=== PATIENT | female | born 1990 | race Caucasian/White ===

== ENCOUNTER 2017-02-15 18:34 | Emergency (ER) | payer OTHER ==
[2017-02-15 18:42] VITALS: BP 121/68; PULSE 78; TEMP 98; BMI 24.7
[2017-02-15] MEDS ORDERED: FLUORESCEIN NA 1 EA STRIP ONE (19:22)
--- NOTE | 2017-02-15 19:28 | PDOC ---
History of Present Illness - General Chief Complaint: Rash Stated Complaint: ITCHING Time Seen by Provider: 02/15/17 19:18 History Source: Patient Exam Limitations: No Limitations - History of Present Illness Initial Comments: 02/15/17 19:28 Patient is a 26 year old female, no significant medical history currently no medication reports that approximately 12 PM today started having itching to right eye, was scratching eye then developed redness in the eye, yellow drainage this a.m., now with itching sensation clear discharge to right ear. Patient denies any fever, no trauma, denies any headache. Past Medical History: Denies. Allergies: No known allergies Medications: None Family History: Non-contributory Social History: Denies smoking, alcohol use, or IVDU Review of Systems GENERAL/CONSTITUTIONAL: No fever or chills. No weakness. No weight change. HEAD, EYES, EARS, NOSE AND THROAT: No change in vision. Right ear itching sensation clear discharge. No sore throat. Right eye is pruritic and erythematous CARDIOVASCULAR: No chest pain or shortness of breath. RESPIRATORY: No cough, wheezing, or hemoptysis. GASTROINTESTINAL: No nausea, vomiting, diarrhea or constipation. No rectal bleeding. GENITOURINARY: No dysuria, frequency, or change in urination. MUSCULOSKELETAL: No joint or muscle swelling or pain. No neck or back pain. SKIN : No rash or easy bruising. NEUROLOGIC: No headache, vertigo, loss of consciousness, or loss of sensation. Physical Exam: GENERAL: The patient is awake, alert, and fully oriented, in no acute distress. EYES: Pupils equal, round and reactive to light, extraocular movements intact, sclera anicteric, conjunctiva on right is erythematous, yellow drainage. Fluorescein stain to right eye, no corneal abrasion is noted. ENT: Right TM is pruritic with clear discharge, erythematous edematous canal consistent with otitis externa nares patent, oropharynx clear without exudates. Moist mucous membranes. No uvula deviation NECK: Normal range of motion, supple without lymphadenopathy, JVD, or masses. LUNGS: Breath sounds equal, clear to auscultation bilaterally. No wheezes, and no crackles. HEART: Regular rate and rhythm, normal S1 and S2 without murmur, rub or gallop. ABDOMEN: Soft, nontender, normoactive bowel sounds. No guarding, no rebound. No masses. No bruising or abrasions MUSCULOSKELETAL: Normal range of motion, no edema. No clubbing or cyanosis. No cords, erythema, or tenderness. No CVA Tenderness with fist. NEUROLOGICAL: Cranial nerves II through XII grossly intact. Normal speech, normal gait. SKIN: Warm, Dry, normal turgor, no rashes or lesions noted. 02/15/17 19:33 Past History - Past Medical History Allergies/Adverse Reactions: Allergies Allergy/AdvReac Type Severity Reaction Status Date / Time No Known Allergies Allergy Verified 02/15/17 18:42 Home Medications: Ambulatory Orders Ciprofloxacin HCl/Dexameth [Ciprodex Otic Suspension] 4 drop AD BID #1 bottle Polymyxin B Sulfate/Tmp [Polytrim Opthalmic Solution -] 1 drop OD Q3H #1 drops 02/15/17 Other medical history: denies - Psycho/Social/Smoking Cessation Hx Anxiety: No Suicidal Ideation: No Smoking Status: No Smoking History: Never smoked Have you smoked in the past 12 months: No Number of Cigarettes Smoked Daily: 0 Information on smoking cessation initiated: No Hx Alcohol Use: No Drug/Substance Use Hx: No Substance Use Type: None *Physical Exam - Vital Signs Last Vital Signs Temp Pulse Resp BP Pulse Ox 98 F 78 19 121/68 99 02/15/17 18:39 02/15/17 18:39 02/15/17 18:39 02/15/17 18:39 02/15/17 18:39 Medical Decision Making - Medical Decision Making 02/15/17 19:33 A/P: Patient with right eye conjunctivitis, fluorescein stained with no corneal abrasion noted. We will discharge patient on Cipro otic and Polytrim. If any increased redness , swelling or any other concerns patient to return back to ER I discussed the physical exam findings, ancillary test results and final diagnoses with the patient. I answered all of the patient's questions. The patient was satisfied with the care received and felt comfortable with the discharge plan and treatment plan. The patient will call to arrange follow-up and will return to the Emergency Department with any new, persistent or worsening symptoms. *DC/Admit/Observation/Transfer Diagnosis at time of Disposition: Conjunctivitis Qualifiers: Conjunctivitis type: acute Acute conjunctivitis type: bacterial Laterality: right Qualified Code(s): H10.31 - Unspecified acute conjunctivitis, right eye Otitis externa Qualifiers: Otitis externa type: swimmer's ear Chronicity: acute Laterality: right Qualified Code(s): H60.331 - Swimmer's ear, right ear - Discharge Dispostion Disposition: HOME Condition at time of disposition: Good Admit: No - Prescriptions Prescriptions: Ciprofloxacin HCl/Dexameth [Ciprodex Otic Suspension] 4 drop AD BID #1 bottle Polymyxin B Sulfate/Tmp [Polytrim Opthalmic Solution -] 1 drop OD Q3H #1 drops - Referrals Referrals: STAFF,NOT ON [Primary Care Provider] - - Patient Instructions Additional Instructions: Refrain from rubbing or scratching eye, did not put any foreign body in ear. If symptoms persist, increased redness and swelling to face or any other concerns return to ER - Post Discharge Activity Work/School Note: Back to Work
== END 2017-02-15 19:48 | disposition home or self-care (01) ==
LOC: JERFT 18:34
DX: H60.331 Swimmer's ear, right ear (principal); H10.31 Unspecified acute conjunctivitis, right eye
CPT/HCPCS: 99281-25

== ENCOUNTER 2017-02-21 18:40 | Emergency (ER) | payer OTHER ==
[2017-02-21 18:48] VITALS: BP 125/78; PULSE 96; TEMP 99.3; BMI 28.3
--- NOTE | 2017-02-21 20:53 | PDOC ---
History of Present Illness - General Chief Complaint: Pain Stated Complaint: ABDOMINAL PAIN Time Seen by Provider: 02/21/17 20:53 History Source: Patient - History of Present Illness Initial Comments: 02/21/17 21:44 26 year old female with midabdominal pain/ epigastric area c/o NVD x 1 day. denies sick contacts. reports "slight fever" yesterday. denies fever today. no urinary symptoms. no pmhx no pshx 02/21/17 21:46 Past History - Past Medical History Allergies/Adverse Reactions: Allergies Allergy/AdvReac Type Severity Reaction Status Date / Time No Known Allergies Allergy Verified 02/21/17 18:46 Home Medications: Ambulatory Orders Ciprofloxacin HCl/Dexameth [Ciprodex Otic Suspension] 4 drop AD BID #1 bottle Polymyxin B Sulfate/Tmp [Polytrim Opthalmic Solution -] 1 drop OD Q3H #1 drops 02/15/17 Famotidine [Pepcid] 40 mg PO DAILY #14 tablet 02/21/17 Other medical history: none - Suicide/Smoking/Psychosocial Hx Smoking Status: No Smoking History: Never smoked Have you smoked in the past 12 months: No Number of Cigarettes Smoked Daily: 0 Hx Alcohol Use: No Drug/Substance Use Hx: No Substance Use Type: None Review of Systems - Review of Systems Able to Perform ROS?: Yes Is the patient limited Thai proficient: No Constitutional: Yes: Chills, Fever ABD/GI: Yes: Diarrhea, Nausea, Vomiting, Abdominal cramping : No: Symptoms Reported, See HPI, Burning, Dysuria, Discharge, Frequency, Flank Pain, Hematuria, Incontinence, Pain, Urgency, Testicular Mass, Testicular Swelling, Lesions, Testicular Pain, Other *Physical Exam - Vital Signs Last Vital Signs Temp Pulse Resp BP Pulse Ox 99.3 F 96 H 18 125/78 100 02/21/17 18:46 02/21/17 18:46 02/21/17 18:46 02/21/17 18:46 02/21/17 18:46 - Physical Exam General Appearance: Yes: Appropriately Dressed Respiratory/Chest: positive: Lungs Clear, Normal Breath Sounds Cardiovascular: positive: Regular Rhythm, Regular Rate Gastrointestinal/Abdominal: positive: Normal Bowel Sounds, Tender (upper mid abdomen/ epigastric area), Soft Musculoskeletal: positive: Normal Inspection. negative: CVA Tenderness Extremity: positive: Normal Capillary Refill, Normal Inspection, Normal Range of Motion Integumentary: positive: Normal Color, Dry, Warm Neurologic: positive: Fully Oriented, Alert, Normal Mood/Affect ED Treatment Course - LABORATORY CBC & Chemistry Diagram: 02/21/17 21:30 02/21/17 21:30 Progress Note - Progress Note Progress Note: A: abdominal pain P: IVF pepcid zofran CBC CMP Lipase UA Urine Medical Decision Making - Medical Decision Making 02/21/17 23:50 patient reports feeling better. tolerating PO liquids. will d/c home. *DC/Admit/Observation/Transfer Diagnosis at time of Disposition: Viral gastroenteritis Abdominal pain Qualifiers: Abdominal location: upper abdomen, unspecified Qualified Code(s): R10.10 - Upper abdominal pain, unspecified - Discharge Dispostion Disposition: HOME - Prescriptions Prescriptions: Famotidine [Pepcid] 40 mg PO DAILY #14 tablet - Patient Instructions Printed Discharge Instructions: DI for Viral Gastroenteritis -- Adult Additional Instructions: drink plenty of fluids. take pepcid as prescribed. follow up with your doctor as soon as possible. return to the ER if symptoms worsen. - Post Discharge Activity Work/School Note: Back to Work
[2017-02-21 21:23] LABS: URINE APPEARANCE SLCLOUDY; URINE BILIRUBIN NEGATIVE (NEGATIVE); URINE BLOOD NEGATIVE (NEGATIVE); URINE COLOR LTYELLOW; URINE GLUCOSE (UA) NEGATIVE (NEGATIVE); URINE KETONE NEGATIVE (NEGATIVE); URINE NITRITE NEGATIVE (NEGATIVE); URINE PROTEIN NEGATIVE (NEGATIVE); URINE UROBILINOGEN NEGATIVE mg/dL (0.2-1.0)
[2017-02-21 21:24] LABS: URINE LEUK ESTERASE 1+ (NEGATIVE)
[2017-02-21 21:26] LABS: URINE BACTERIA RARE /hpf (NONE SEEN); URINE MUCUS RARE; URINE RBC 1 /hpf (0-3); URINE WBC 2 /hpf (3-5)
[2017-02-21] MEDS ORDERED: SODIUM CHLORIDE 1,000 ML IV STA (21:27)
[2017-02-21] MEDS ORDERED: FAMOTIDINE 20 MG/50 ML IVPB 50 ML IVPB ONE ×2 (21:27→21:44)
[2017-02-21] MEDS ORDERED: ONDANSETRON 4 MG/2 ML VIAL IVPB ONE (21:27)
[2017-02-21] MEDS ORDERED: ONDANSETRON 4 MG/2 ML VIAL ONE (21:43)
[2017-02-21 21:44] LABS: BASOPHIL 0.2 % (0-2.0); EOSINOPHIL 0.5 % (0-4.5); MCH 27.9 pg (25.7-33.7); MCHC 34.4 g/dl (32.0-36.0); MEAN PLT VOLUME 8.6 fl (7.5-11.1); NEUTROPHILS 73.7 % (42.8-82.8); PLATELET COUNT 239 K/MM3 (134-434); RDW 15.6 % (11.6-15.6); WHITE BLOOD COUNT 7.4 K/mm3 (4.0-10.0)
[2017-02-21 22:12] LABS: ALBUMIN 3.7 g/dl (3.4-5.0); ALK PHOS 60 U/L (45-117); ANION GAP 4 (8-16); BILIRUBIN,TOTAL 0.6 mg/dL (0.2-1.0); CALCIUM 8.9 mg/dL (8.5-10.1); CO2 27 mmol/L (21-32); CREATININE 0.6 mg/dL (0.55-1.02); GLUCOSE,RANDOM 93 mg/dL (74-106); SGPT/ALT 23 U/L (12-78); TOT PROT 7.9 g/dl (6.4-8.2)
[2017-02-21 22:15] LABS: SGOT/AST 20 U/L (15-37)
[2017-02-21] MEDS ORDERED: DICYCLOMINE HCL 20 MG TABLET PO ONE (23:09)
[2017-02-21] MEDS ORDERED: DICYCLOMINE HCL 10 MG CAPSULE ONE (23:12)
--- NOTE | 2017-02-22 21:20 | EKG ---
Test Reason : Blood Pressure : / mmHG Vent. Rate : 086 BPM Atrial Rate : 086 BPM P-R Int : 136 ms QRS Dur : 072 ms QT Int : 358 ms P-R-T Axes : 042 056 040 degrees QTc Int : 428 ms NORMAL SINUS RHYTHM NORMAL ECG WHEN COMPARED WITH ECG OF 08-OCT-2015 19:41, NO SIGNIFICANT CHANGE WAS FOUND NO CLINICAL INFORMATION IS AVAILABLE REPEAT EKG IF CLINICALLY INDICATED Confirmed by KIA MICHELLE MD ([id number]) on 02/22/2017 9:19:49 PM Referred By: Confirmed By:KIA MICHELLE MD
== END 2017-02-22 00:25 | disposition home or self-care (01) ==
LOC: JER 18:40
PROC: 3E033GC Introduction of Other Therapeutic Substance into Peripheral Vein, Percutaneous Approach (ICD-10-PCS; principal; 2017-02-21)
PROC: 3E033GC Introduction of Other Therapeutic Substance into Peripheral Vein, Percutaneous Approach (ICD-10-PCS; 2017-02-21)
DX: A08.4 Viral intestinal infection, unspecified (principal); B97.89 Other viral agents as the cause of diseases classified elsewhere
CPT/HCPCS: 36415; 76705-TC; 80053; 81003; 81015; 83690; 84703; 85025; 93005; 93010; 96365; 96375; 99282-25

== ENCOUNTER 2018-03-31 18:03 | Emergency (ER) | payer OTHER ==
[2018-03-31 18:12] VITALS: BP 130/70; PULSE 105; TEMP 99.8; BMI 28.7
[2018-03-31 18:24] LABS: URINE APPEARANCE CLOUDY; URINE BILIRUBIN NEGATIVE (<2.0 mg/dL); URINE COLOR LTYELLOW; URINE GLUCOSE (UA) NEGATIVE (NEGATIVE); URINE KETONE NEGATIVE (NEGATIVE); URINE LEUK ESTERASE 3+ (NEGATIVE); URINE NITRITE NEGATIVE (NEGATIVE); URINE PROTEIN 2+ (NEGATIVE); URINE UROBILINOGEN 4.0 E.U/dl mg/dL (0.2-1.0)
--- NOTE | 2018-03-31 18:49 | PDOC ---
History of Present Illness - General Chief Complaint: Pain, Acute Stated Complaint: ABDOMINAL PAIN Time Seen by Provider: 03/31/18 18:45 - History of Present Illness Initial Comments: 27yo F with no significant PMH presenting with suprapubic tenderness x 5 days. Patient reports urinary frequency up to about five times an hour. She has also had discomfort on urination that she describes as orgasmy. Denies hematuria. Patient also reports back discomfort that she describes as wobbly. She had a UTI more than five years ago. She says that her current presentation differs from that episode. She had a fever today of 101 and also felt nauseous. Denies chills, chest pain, or shortness of breath. Past History - Past Medical History Allergies/Adverse Reactions: Allergies Allergy/AdvReac Type Severity Reaction Status Date / Time No Known Allergies Allergy Verified 03/31/18 18:09 Home Medications: Ambulatory Orders Cephalexin [Keflex] 500 mg PO BID #14 capsule 03/31/18 COPD: No - Suicide/Smoking/Psychosocial Hx Smoking Status: No Smoking History: Never smoked Have you smoked in the past 12 months: No Number of Cigarettes Smoked Daily: 0 Hx Alcohol Use: No Drug/Substance Use Hx: No Substance Use Type: None Review of Systems - Review of Systems Comments:: Constitutional: +fever, no chills HEENT: no throat pain, no dysphagia Cardiovascular: no chest pain, no palpitations Respiratory: no cough, no shortness of breath Gastrointestinal: +abdominal pain, +nausea, no vomiting, no diarrhea, no constipation Genitourinary: +dysuria, +frequency Musculoskeletal: no myalgia, no arthralgia Skin: no rash, no itching Neurologic: no headache, no dizziness *Physical Exam - Vital Signs Last Vital Signs Temp Pulse Resp BP Pulse Ox 99.8 F H 105 H 16 130/70 99 03/31/18 18:10 03/31/18 18:10 03/31/18 18:10 03/31/18 18:10 03/31/18 18:10 - Physical Exam Comments: General: Awake, alert, and fully oriented, in no acute distress Head: no signs of trauma Eyes: EOMI, sclera anicteric ENT: Moist mucus membranes Neck: Normal ROM, supple Lungs: Lungs clear, Normal breath sounds Cardio: Regular rhythm, S1 and S2 present Abdomen: Suprapubic area tender to palpation. Soft, non-distended. No guarding, no rebound, no masses. No CVA tenderness Extremities: Normal range of motion, Distal pulses present SKIN: Warm, Dry, normal turgor Neurologic: Cranial nerves II through XII grossly intact. Normal speech ED Treatment Course - LABORATORY CBC & Chemistry Diagram: 03/31/18 20:17 03/31/18 20:17 Medical Decision Making - Medical Decision Making 27yo F with no significant PMH presenting with suprapubic tenderness x 5 days. -DDX includes but not limited to UTI, pyelonephritis, kidney stone, cystitis -No CVA tenderness, so less suspicion for pyelonephritis -UA positive -Rocephin 1g -motrin, tylenol -Labs: WBC=11.5 -Send keflex to pharmacy *DC/Admit/Observation/Transfer Diagnosis at time of Disposition: Urinary tract infection - Discharge Dispostion Disposition: HOME Condition at time of disposition: Stable - Prescriptions Prescriptions: Cephalexin [Keflex] 500 mg PO BID #14 capsule - Referrals Referrals: Maricruz Marie MD [Non Staff, Medical] - - Patient Instructions Printed Discharge Instructions: DI for Urinary Tract Infection (UTI) Additional Instructions: You were seen in the emergency department for abdominal pain. Urinalysis shows that you have a urinary tract infection. We sent antibiotics to your pharmacy: Keflex 500mg twice a day for five days Follow-up with your primary care doctor, Dr. Marie, in the next week to discuss this ED visit and to make sure your recovery is progressing appropriately. Call and make an appointment. You can use [id number] motrin and tylenol for pain control. Follow the instructions on the medication bottle. Call for emergency medical services or go to the emergency room right away if any of the following occurs: high fevers, chills, persistent vomiting, stop urinating, or any new or concerning symptoms. If you think you have an emergency , call for medical help right away. - Post Discharge Activity
[2018-03-31 18:56] LABS: HCG,QUALITATIVE URINE Negative
[2018-03-31 19:11] LABS: URINE BACTERIA RARE /hpf (NONE SEEN); URINE MUCUS RARE
[2018-03-31] MEDS ORDERED: IBUPROFEN 400 MG TABLET (FP) PO ONE ×2 (19:11→19:13)
[2018-03-31] MEDS ORDERED: CEFTRIAXONE 1,000 MG in DEXTROSE 5%-WATER - 50 ML IVPB ONE (20:00)
[2018-03-31] MEDS ORDERED: CEFTRIAXONE 1 GM/50 ML BAG ONE (20:06)
--- NOTE | 2018-03-31 20:30 | PDOC ---
Attending Attestation - Resident Resident Name: Abimbola Sin - ED Attending Attestation I have performed the following: I have examined & evaluated the patient, The case was reviewed & discussed with the resident, I agree w/resident's findings & plan, Exceptions are as noted - Medical Decision Making 03/31/18 20:30 I, Dr. Ly Marcus, DO, attest that this document has been prepared under my direction and personally reviewed by me in its entirety. I further attest, that it accurately reflects all work, treatment, procedures and medical decision -making performed by me. 03/31/18 21:25 a/p: 27yo female with suprapubic pain and tingling x 1 week -fever last night to 101 -urinary freq -no flank pain, no back pain, no n/v/d. No cp/sob -pt states she has been drinking plenty of fluids, but has been urinating freq -pt is nontoxic in appearance -will send labs, ua, ucx 03/31/18 21:39 pt with a UTI on labs, rocephin given in the ED pt states feeling much better discussed po antibiotics as an outpt discussed all reasons to return to the ED and need for follow up tuesday with her PMD discussed intolerance to oral abx and signs/symptoms of pyelo or worsening uti answered all quesitons pt is stable for d/c to home at this time for outpt management of UTI <Ly Marcus - Last Filed: 03/31/18 21:25> - HPI HPI: 03/31/18 22:11 The patient is a 27 year old female with no significant PMH who presents to the emergency department with supapubic pain for about 1 week. The patient reports some associated tingling sensation with urination and frequency. The patient also reports some associated lower back pain. She denies any other symptoms. She denies any fever, chills, nausea, vomiting, diarrhea, or other urinary symptoms. She denies any chest pain, shortness of breath, headache or dizziness. The patient denies any other complaints. PCP: Dr. Marie - Physicial Exam PE: 03/31/18 22:12 GENERAL: Awake, alert, and fully oriented, in no acute distress HEAD: No signs of trauma EYES: PERRLA, EOMI, sclera anicteric, conjunctiva clear ENT: Auricles normal inspection, hearing grossly normal, nares patent, oropharynx clear without exudates. Moist mucosa NECK: Normal ROM, supple, no lymphadenopathy, JVD, or masses LUNGS: Breath sounds equal, clear to auscultation bilaterally. No wheezes, and no crackles HEART: Regular rate and rhythm, normal S1 and S2, no murmurs, rubs or gallops ABDOMEN: (+)mild suprapubic pain tender to palpation. Soft, normoactive bowel sounds. No guarding, no rebound. No masses EXTREMITIES: Normal range of motion, no edema. No clubbing or cyanosis. No cords, erythema, or tenderness NEUROLOGICAL: Cranial nerves II through XII grossly intact. Normal speech, normal gait SKIN: Warm, Dry, normal turgor, no rashes or lesions noted. Documentation prepared by Joshua Silverman, acting as medical delivery technician for Ly Marcus MD <Joshua Silverman - Last Filed: 03/31/18 22:15>
[2018-03-31] MEDS ORDERED: ACETAMINOPHEN 1000 MG/100 ML VIAL (NON FORMULARY) IVPB ONE (20:41)
[2018-03-31 20:45] LABS: BASO % 0.4 % (0-2.0); EOS % 1.8 % (0-4.5); HEMATOCRIT 39.1 % (32.4-45.2); HEMOGLOBIN 13.1 GM/dL (10.7-15.3); LYMPH % 18.5 % (8-40); MCH 28.2 pg (25.7-33.7); MCHC 33.5 g/dl (32.0-36.0); MEAN CELL VOLUME 84.2 fl (80-96); MEAN PLT VOLUME 8.8 fl (7.5-11.1); NEUT % 71.3 % (42.8-82.8); PLATELET COUNT 262 K/MM3 (134-434); RBC 4.65 M/mm3 (3.60-5.2); RDW 14.3 % (11.6-15.6); WHITE BLOOD COUNT 11.5 K/mm3 (4.0-10.0)
[2018-03-31] MEDS ORDERED: ACETAMINOPHEN INJECTION 100 ML IVPB ONE (20:46)
[2018-03-31 21:10] LABS: ALBUMIN 3.9 g/dl (3.4-5.0); ALK PHOS 65 U/L (45-117); ANION GAP 10 MMOL/L (8-16); BILIRUBIN,TOTAL 0.6 mg/dL (0.2-1); BLOOD UREA NITROGEN 10 mg/dL (7-18); CALCIUM 8.9 mg/dL (8.5-10.1); CHLORIDE 106 mmol/L (98-107); CO2 25 mmol/L (21-32); CREATININE 0.6 mg/dL (0.55-1.3); GLUCOSE,RANDOM 75 mg/dL (74-106); POTASSIUM 4.2 mmol/L (3.5-5.1); SGOT/AST 14 U/L (15-37); SGPT/ALT 22 U/L (13-61); SODIUM 140 mmol/L (136-145); TOT PROT 8.3 g/dl (6.4-8.2)
== END 2018-03-31 22:10 | disposition home or self-care (01) ==
LOC: JER 18:03
PROC: 3E03329 Introduction of Other Anti-infective into Peripheral Vein, Percutaneous Approach (ICD-10-PCS; principal; 2018-03-31)
PROC: 3E033NZ Introduction of Analgesics, Hypnotics, Sedatives into Peripheral Vein, Percutaneous Approach (ICD-10-PCS; 2018-03-31)
DX: N39.0 Urinary tract infection, site not specified (principal)
CPT/HCPCS: 36415; 80053; 81003; 81015; 84703; 85025; 96365; 96375; 99283-25; J0131

== ENCOUNTER 2018-06-09 08:23 | Emergency (ER) | payer OTHER ==
[2018-06-09 08:36] VITALS: TEMP 97.8; BMI 29.7
--- NOTE | 2018-06-09 08:58 | PDOC ---
Attending Attestation - Resident Resident Name: Debbie Jaramillo - ED Attending Attestation I have performed the following: I have examined & evaluated the patient, The case was reviewed & discussed with the resident, I agree w/resident's findings & plan, Exceptions are as noted - HPI HPI: 06/09/18 09:20 Ms Acevedo is a 27 yo currently 12 weeks She presents to the ER with a complaint of lower back pain, nausea yesterday She passed 2 small blood clots since that time, she denies vaginal bleeding No saturation of pads - Physicial Exam PE: 06/09/18 09:31 On examination: RRR CTA B/L No abdominal tenderness to palpation - Medical Decision Making 06/09/18 11:10 Laboratory Tests 06/09/18 06/09/18 06/09/18 09:00 09:00 09:07 WBC 8.9 Hgb 13.0 Hct 39.1 Plt Count 231 BUN 8 Creatinine 0.5 L Beta HCG, Quant 91589.4 Urine Blood Negative Urine Nitrite Negative Ur Leukocyte Esterase Negative US pending 06/09/18 13:16 Pt has book from her OB with Blood type - O+ [place] not needed UA negative US demonstrates single live IUP, right ovarian cyst discharge to home Follow up with complex human resources manager Clinical impression: threatened AB, initial presentation
--- NOTE | 2018-06-09 09:40 | PDOC ---
History of Present Illness - General Chief Complaint: Vaginal Bleeding Stated Complaint: VAGINAL BLEEDING (12 WKS ) Time Seen by Provider: 06/09/18 08:45 History Source: Patient Exam Limitations: No Limitations - History of Present Illness Initial Comments: 06/09/18 09:15 Patient is a 27 year old female currently 12 weeks with LMP who presents here today for vaginal spotting. According to patient, last night she experienced one episode of mild left sided back pain that lasted only 5 minutes but was not concerned due to its abrupt stop. Patient however woke up this morning feeling nauseated and when she went to use the restroom she noticed 2 small clots on her underwear. Patient states no further bleeding since then but was concerned because she had an episode of vaginal spotting one month ago. Patient denies any trauma or injury to the abdomen. Denies any recent falls. Patient otherwise denies any urinary symptoms, vaginal discharge, chest pain, palpitations, shortness of breath, abdominal pain, dizziness, loss of consciousness, diarrhea, constipation, headaches. OBGYN: Dr. Senthil HAWKINS Hx: Age of Menarche: 9 LMP 03/20/18 Reports 28 day cycle lasting 5-6 days with no symptoms with spontaneous in first trimester No Complications during delivery PMHx: Denies PSHx: Denies Social Hx: Denies alcohol use Denies drug use Denies smoking Family Hx: Denies Allergies: NKDA 06/09/18 09:42 Past History - Past Medical History Allergies/Adverse Reactions: Allergies Allergy/AdvReac Type Severity Reaction Status Date / Time No Known Allergies Allergy Verified 06/09/18 08:33 Home Medications: Ambulatory Orders NK [No Known Home Medication] 06/09/18 COPD: No Thyroid Disease: No Other medical history: DENIES. - Suicide/Smoking/Psychosocial Hx Smoking Status: No Smoking History: Never smoked Have you smoked in the past 12 months: No Number of Cigarettes Smoked Daily: 0 Hx Alcohol Use: No Drug/Substance Use Hx: No Substance Use Type: None Review of Systems - Review of Systems Constitutional: No: Chills, Diaphoresis, Fever, Malaise HEENTM: No: Double Vision, Nose Congestion, Throat Swelling Respiratory: No: Cough, Orthopnea, Shortness of Breath, SOB with Exertion, SOB at Rest, Wheezing, Productive cough, Hemoptysis Cardiac (ROS): No: Chest Pain, Edema, Lightheadedness ABD/GI: Yes: Nausea. No: Abdominal Distended, Constipated, Vomiting, Abdominal cramping : Yes: Other ((+) Vaginal spotting ). No: Burning, Dysuria, Discharge, Frequency, Flank Pain, Hematuria Neurological: No: Headache, Numbness, Tingling, Tremors, Dizziness *Physical Exam - Vital Signs Last Vital Signs Temp Pulse Resp BP Pulse Ox 97.8 F 71 15 114/65 98 06/09/18 08:33 06/09/18 08:33 06/09/18 08:33 06/09/18 08:33 06/09/18 08:33 - Physical Exam General Appearance: Yes: Other (Awake, alert, oriented x3, in no acute distress ) HEENT: positive: EOMI, TOBI, Normal ENT Inspection, Normal Voice, Pharynx Normal. negative: Pale Conjunctivae, Tonsillar Exudate, Tonsillar Erythema Neck: positive: Supple. negative: Decreased range of motion, Lymphadenopathy (R ), Lymphadenopathy (L) Respiratory/Chest: positive: Lungs Clear, Normal Breath Sounds. negative: Respiratory Distress, Accessory Muscle Use, Crackles, Rales, Rhonchi, Wheezing Cardiovascular: positive: Regular Rhythm, Regular Rate, S1, S2. negative: Edema , JVD, Murmur Female Pelvic Exam: positive: normal external exam, cervical os closed, discharge (white physiological ), adnexal tenderness (right ) Gastrointestinal/Abdominal: positive: Other (Soft, nontender, nondistended, normoactive bowel sounds, no rebound or guarding , no organomegaly ) Lymphatic: negative: Tenderness Musculoskeletal: positive: Normal Inspection. negative: CVA Tenderness, CVA Tenderness (R), CVA Tenderness (L), Decreased Range of Motion Extremity: positive: Normal Capillary Refill, Normal Inspection, Normal Range of Motion Integumentary: positive: Normal Color, Dry, Warm Neurologic: positive: point of sale associate II-XII NML intact, Fully Oriented, Alert, Normal Mood/ Affect, Normal Response, Motor Strength 5/5 Moderate Sedation - Procedure Monitoring Vital Signs: Procedure Monitoring Vital Signs Temperature 97.8 F 06/09/18 08:33 Pulse Rate 71 06/09/18 08:33 Respiratory Rate 15 06/09/18 08:33 Blood Pressure 114/65 01/04/19 08:33 O2 Sat by Pulse Oximetry (%) 98 06/09/18 08:33 ED Treatment Course - LABORATORY CBC & Chemistry Diagram: 06/09/18 09:00 06/09/18 09:00 - RADIOLOGY Radiology Studies Ordered: Category Date Time Status TRANSVAGINAL US PREG [US] Stat Ultrasound 06/09/18 08:49 Ordered Medical Decision Making - Medical Decision Making 06/09/18 09:44 Patient is a 27 year old female who presents today for vaginal spotting that started this morning. Patient denies any trauma or injury to the area. Differential Diagnosis include, but not limited to, Ectopic , Spontaneous , Cysts. -CBC, CMP, B-Hcg quant -Type and Screen -Transvaginal U/S -Pelvic exam 06/09/18 11:18 -Patient has right adnexal tenderness on pelvic examination -Labs unremarkable -HCG quant >83k -Transvaginal U/S pending 06/09/18 18:41 -U/S revealed 10 weeks 3 days IUG -Patient to be discharged and follow up with OBGYN tomorrow. Recommended bed rest and pelvic rest with no heavy lifting *DC/Admit/Observation/Transfer Diagnosis at time of Disposition: Vaginal bleeding during - Discharge Dispostion Disposition: HOME Condition at time of disposition: Stable Decision to Admit order: No - Referrals Referrals: Maricruz Marie MD [Primary Care Provider] - - Patient Instructions Additional Instructions: -You were seen here for vaginal bleeding during pregnancies. U/S done and revealed a of 10 weeks 3 days. You have small right ovarian cyst. -Recommend Pelvic rest, bed rest, and no heavy object lifting. -Please follow up with your OBGYN within a week -Continue taking Pre- pills -If you have worsening symptoms, please return to the emergency department. - Post Discharge Activity
[2018-06-09 09:43] LABS: BASO % 0.4 % (0-2.0); EOS % 2.5 % (0-4.5); HEMATOCRIT 39.1 % (32.4-45.2); LYMPH % 20.4 % (8-40); MCH 28.2 pg (25.7-33.7); MCHC 33.3 g/dl (32.0-36.0); MEAN CELL VOLUME 84.8 fl (80-96); MEAN PLT VOLUME 9.1 fl (7.5-11.1); MONO % 5.5 % (3.8-10.2); NEUT % 71.2 % (42.8-82.8); PLATELET COUNT 231 K/MM3 (134-434); RBC 4.61 M/mm3 (3.60-5.2); RDW 14.8 % (11.6-15.6); WHITE BLOOD COUNT 8.9 K/mm3 (4.0-10.0)
[2018-06-09 10:23] LABS: ALBUMIN 3.4 g/dl (3.4-5.0); ALK PHOS 47 U/L (45-117); ANION GAP 8 MMOL/L (8-16); BILIRUBIN,TOTAL 0.4 mg/dL (0.2-1); BLOOD UREA NITROGEN 8 mg/dL (7-18); CALCIUM 8.9 mg/dL (8.5-10.1); CHLORIDE 104 mmol/L (98-107); CO2 23 mmol/L (21-32); CREATININE 0.5 mg/dL (0.55-1.3); GLUCOSE,RANDOM 85 mg/dL (74-106); POTASSIUM 3.8 mmol/L (3.5-5.1); SGOT/AST 13 U/L (15-37); SGPT/ALT 22 U/L (13-61); SODIUM 135 mmol/L (136-145); TOT PROT 7.6 g/dl (6.4-8.2)
[2018-06-09 10:27] LABS: URINE APPEARANCE CLEAR; URINE BILIRUBIN NEGATIVE (<2.0 mg/dL); URINE COLOR YELLOW; URINE GLUCOSE (UA) NEGATIVE (NEGATIVE); URINE KETONE NEGATIVE (NEGATIVE); URINE LEUK ESTERASE NEGATIVE (NEGATIVE); URINE NITRITE NEGATIVE (NEGATIVE); URINE PROTEIN NEGATIVE (NEGATIVE); URINE UROBILINOGEN NEGATIVE mg/dL (0.2-1.0)
[2018-06-09 11:03] LABS: HCG,QUALITATIVE URINE POSITIVE
[2018-06-09 13:38] VITALS: BP 113/77; PULSE 81
== END 2018-06-09 13:38 | disposition home or self-care (01) ==
LOC: JER 08:23
DX: O26.891 Other specified pregnancy related conditions, first trimester (principal); O20.8 Other hemorrhage in early pregnancy; Z3A.10 10 weeks gestation of pregnancy
CPT/HCPCS: 36415; 76817-TC; 80053; 81003; 84702; 84703; 85025; 87086; 99282-25

== ENCOUNTER 2018-06-27 18:47 | Emergency (ER) | payer OTHER ==
[2018-06-27 18:58] VITALS: BP 119/72; PULSE 88; TEMP 98.1; BMI 29.7
--- NOTE | 2018-06-27 18:58 | PDOC ---
Rapid Medical Evaluation Chief Complaint: Back Pain Time Seen by Provider: 06/27/18 18:56 Medical Evaluation: Allergies Allergy/AdvReac Type Severity Reaction Status Date / Time No Known Allergies Allergy Verified 06/09/18 08:33 06/27/18 18:56 I have performed a brief in person evaluation of this patient. The patient's CC: back pain HPI: Pt is a 27 YO female who complains of back pain. She is currently . PE: Skin: Clear Heart: RRR Lungs: Clear Abd: Pt has left CVAT MS. moves all extremities without difficulty. Neuro: Alert and oriented Psch: appropriate affect UA and UC The patient will proceed to [facility]K for further evaluation. Discharge Disposition - Diagnosis Flank pain - Referrals - Patient Instructions - Post Discharge Activity
[2018-06-27] MEDS ORDERED: ACETAMINOPHEN 500 MG TABLET (FP) PO ONE (20:37)
[2018-06-27] MEDS ORDERED: ACETAMINOPHEN 500 MG TABLET (FP) ONE (20:39)
--- NOTE | 2018-06-27 20:41 | PDOC ---
History of Present Illness - General Chief Complaint: Back Pain Stated Complaint: TWELVE WKS /LOWER BCK PAIN Time Seen by Provider: 06/27/18 18:56 - History of Present Illness Initial Comments: 06/27/18 20:40 12 week gravid female presents for evaluation of dysuria and back pain x2 d Past History - Past Medical History Allergies/Adverse Reactions: Allergies Allergy/AdvReac Type Severity Reaction Status Date / Time No Known Allergies Allergy Verified 06/09/18 08:33 Home Medications: Ambulatory Orders Nitrofurantoin Monohyd/M-Cryst [Macrobid -] 100 mg PO BID #14 capsule 06/27/18 COPD: No Thyroid Disease: No - Suicide/Smoking/Psychosocial Hx Smoking Status: No Smoking History: Never smoked Have you smoked in the past 12 months: No Number of Cigarettes Smoked Daily: 0 Hx Alcohol Use: No Drug/Substance Use Hx: No Substance Use Type: None Review of Systems - Review of Systems Constitutional: Yes: Malaise. No: Chills, Fever, Night Sweats : Yes: See HPI, Burning, Dysuria, Flank Pain *Physical Exam - Vital Signs Last Vital Signs Temp Pulse Resp BP Pulse Ox 98.1 F 88 15 119/72 99 06/27/18 18:57 06/27/18 18:57 06/27/18 18:57 06/27/18 18:57 06/27/18 18:57 - Physical Exam Comments: 06/27/18 20:41 HEAD: NC/AT EYES: Conjuntiva clear MS: Full ROM in all joints without edema NEUROLOGIC: No gross sensory or motor deficits, NVID SKIN: Normal color and temperature no lesions or rashes Moderate Sedation - Procedure Monitoring Vital Signs: Procedure Monitoring Vital Signs Temperature 98.1 F 06/27/18 18:57 Pulse Rate 88 06/27/18 18:57 Respiratory Rate 15 06/27/18 18:57 Blood Pressure 119/72 06/27/18 18:57 O2 Sat by Pulse Oximetry (%) 99 06/27/18 18:57 ED Treatment Course - Medications Given in the ED: ED Medications Discontinued Medications Generic Name Dose Route Start Last Admin Trade Name Freq PRN Reason Stop Dose Admin Acetaminophen 1,000 mg 06/27/18 20:37 06/27/18 20:39 Tylenol - PO 06/27/18 20:38 1,000 mg ONCE ONE Administration *DC/Admit/Observation/Transfer Diagnosis at time of Disposition: Flank pain, Urinary tract infection - Discharge Dispostion Disposition: HOME Condition at time of disposition: Stable Decision to Admit order: No - Prescriptions Prescriptions: Nitrofurantoin Monohyd/M-Cryst [Macrobid -] 100 mg PO BID #14 capsule - Referrals Referrals: Maricruz Marie MD [Primary Care Provider] - - Patient Instructions Printed Discharge Instructions: Urinary Tract Infection Additional Instructions: Antibiotics as directed. Return to the emergency room should symptoms worsen or go unresolved and follow up with her primary care doctor in 1-2 days for further evaluation and treatment options. - Post Discharge Activity
[2018-06-27 21:00] LABS: URINE APPEARANCE CLEAR; URINE BILIRUBIN NEGATIVE (<2.0 mg/dL); URINE COLOR LTYELLOW; URINE GLUCOSE (UA) NEGATIVE (NEGATIVE); URINE KETONE NEGATIVE (NEGATIVE); URINE LEUK ESTERASE TRACE (NEGATIVE); URINE NITRITE NEGATIVE (NEGATIVE); URINE PROTEIN NEGATIVE (NEGATIVE); URINE UROBILINOGEN NEGATIVE mg/dL (0.2-1.0)
[2018-06-27 21:19] LABS: EPI CELLS RARE /HPF (FEW)
== END 2018-06-27 21:39 | disposition home or self-care (01) ==
LOC: JERFT 18:47
DX: O26.891 Other specified pregnancy related conditions, first trimester (principal); O23.41 Unspecified infection of urinary tract in pregnancy, first trimester; Z3A.12 12 weeks gestation of pregnancy
CPT/HCPCS: 81003; 81015; 87086; 99281-25

== ENCOUNTER 2019-01-01 10:17 | Inpatient (IN) | payer OTHER ==
[2019-01-01] MEDS: ELECTROLYTE-148 SOLN 1,000 ML IV SCH ×3 (11:45→17:49)
[2019-01-01] MEDS ORDERED: PROMETHAZINE HCL 25 MG/1 ML VIAL IVPUSH ONE (12:15)
[2019-01-01] MEDS ORDERED: BUTORPHANOL TARTRATE 1 MG/ML VIAL IVPB ONE (12:15)
--- NOTE | 2019-01-01 12:34 | HP ---
Past Medical History - Primary Care Physician PCP:: Gabriela Nova - Admission Chief Complaint: 28 yrs , 39.3 weeks by sowno & 41.3/7 weeks by dates admitted in labor. Onset Lp at 2.00AM . Pt is drop in History of Present Illness: care at [facility] in [place], affiliated with [facility]. records reviewed . 05/15/19 Intial work Up O Pos, Hbsag neg, Rubella iimune , TP AB neg, , urine c/s neg , cbc h/h 11.9/35.1 , plt 263, CF screen neg , quantiferon neg , hiv neg 07/06/18 urine c/s neg 10/24/18 3 hr GTt 90,( ref 95) 187( ref 180 ), 162 ( ref 155 ),114 ( ref 125) -- 2 resits abn , pt was diagnosed GDM, is Diet controlled .BGM monitored 4-5 x/ day 11/14/18 cbc h/h 10.9/33.9 , plt 253 12/01/18 gc/ct neg, GBS neg 12/22/18 HIV neg , Quantiferon neg Sono gram done as per pt at 6 weeks , she was assigned EDC 01/06/19 . Anatomy Us normal 11/01/18 sono 31.1 weeks pt states she was followed by NST & BPP weekly , History Source: Patient, Medical Record Limitations to Obtaining History: No Limitations - Past Medical History Cardiovascular: No: HTN, Murmur Pulmonary: No: Asthma, COPD, Pneumonia Gastrointestinal: No: GERD Hepatobiliary: No: Hepatitis B Renal/: Yes: UTI (pt states she had uti once during preg , was treated with Iv Ampicillin) Reproductive: No: Ectopic , PID ...: 2 ...Para: 1 (1 05/2007 at [facility], 8'8' ) ...Term: 1 ...: 0 ...Spon : 0 ...Induced : 0 ...LMP: 03/20/18 ... Weeks Gestation by Dates: 41.0 ...EDC by Dates: 12/25/18 ...EDC by Sono: 01/06/19 (39.3 weeks ) Heme/Onc: Yes: Anemia (in past , in current pregn, rx po iron & pnv) Infectious Disease: No: AIDS, HIV, STD's, Tuberculosis Psych: No: Addictions, Anxiety, Bipolar, Depression, Panic, Psychosis, Schizophrenia, Other Endocrine: No: Diabetes Mellitus, Hyperparathyroidism, Hypothyroidism - Past Surgical History Past Surgical History: Yes: None Hx Myomectomy: No Hx Transabdominal Cerclage: No - Smoking History Smoking history: Never smoked Have you smoked in the past 12 months: No Aproximately how many cigarettes per day: 0 - Alcohol/Substance Use Hx Alcohol Use: No History of Substance Use: reports: None - Social History History of Recent Travel: No Home Medications - Allergies Allergies/Adverse Reactions: Allergies Allergy/AdvReac Type Severity Reaction Status Date / Time No Known Allergies Allergy Verified 01/01/19 11:02 - Home Medications Home Medications: Ambulatory Orders NK [No Known Home Medication] 01/01/19 Physical Exam - Maternity Vital Signs: Vital Signs Temperature 97.9 F 01/01/19 12:00 Pulse Rate 66 01/01/19 12:00 Respiratory Rate 20 01/01/19 12:00 Blood Pressure 139/86 01/01/19 12:00 O2 Sat by Pulse Oximetry (%) Constitutional: Yes: Well Nourished, Moderate Distress, Pallor HENT: Yes: WNL, Normocephalic Neck: Yes: WNL Cardiovascular: Yes: WNL, Regular Rate and Rhythm Lungs: Clear to auscultation Breast(s): Yes: WNL - Abdominal Exam/OB Fundal Height: 40 Number of Fetuses: Single Presentation: Vertex Contractions: Yes Regularity: Irregular (3-6 min) Intensity: Mod/Strong Monitor Mode: External Heart Rate (range): 130-150 Heart Rate Location: Midline Category: I Accelerations: Uniform Decelerations: None - Vaginal Exam/OB Vaginal Bleediing: Bloody Show Speculum Exam: No Dilatation (cm): 5 Effacement (%): 70 Amniotic Membrane Status: Intact Presentation: Vertex/Position (exam at 11.45 AM) Station: -2 - Physical Exam Musculoskeletal: Yes: WNL Extremities: Yes: WNL Edema: Yes Edema: LLE: 2+, RLE: 2+ Integumentary: Yes: WNL Deep Tendon Reflex Grade: Normal +2 ...Motor Strength: WNL Psychiatric: Yes: WNL, Alert, Oriented - Labs Lab Results: Laboratory Tests 01/01/19 01/01/19 01/01/19 10:56 13:15 13:15 WBC 9.5 Hgb 11.9 Hct 35.5 Plt Count 157 D Neutrophils % 80.5 PT with INR 10.20 INR 0.87 PTT (Actin FS) 27.6 Sodium Potassium Chloride Carbon Dioxide BUN Creatinine POC Glucometer 107 Random Glucose AST ALT RPR Titer Blood Type Antibody Screen 01/01/19 01/01/19 01/01/19 13:15 13:15 13:15 WBC Hgb Hct Plt Count Neutrophils % PT with INR INR PTT (Actin FS) Sodium 139 Potassium 3.9 Chloride 109 H Carbon Dioxide 21 BUN 11.0 Creatinine 0.7 POC Glucometer Random Glucose 95 AST 18 ALT 26 RPR Titer Nonreactive Blood Type O POSITIVE Antibody Screen Negative Problem List - Problems (1) with 39 completed weeks gestation Code(s): Z3A.39 - 39 WEEKS GESTATION OF (2) Labor established Code(s): RGB3833 - (3) Gestational diabetes, diet controlled Code(s): O24.410 - GESTATIONAL DIABETES MELLITUS IN , DIET CONTROLLED Qualifiers: Trimester: third trimester Qualified Code(s): O24.410 - Gestational diabetes mellitus in , diet controlled (4) with care elsewhere, antepartum Code(s): Z34.90 - ENCNTR FOR SUPRVSN OF NORMAL , UNSP, UNSP TRIMESTER Assessment/Plan 28 yrs , 39.3 weeks by Emmanuel mccarthy 12 yrs ago care elsewhere , in labor . GBS neg , gdm diet controlled ( Bgm 107 ) Plan : pt offered stadol phergan , epidural labor analgesia, she prefers no analgesia, prn may be Pitocin augmentation prn anticipate vaginal delivery
[2019-01-01 12:37] VITALS: BMI 36.5
[2019-01-01 13:45] LABS: BASO % 0.3 % (0-2.0); EOS % 0.8 % (0-4.5); HEMATOCRIT 35.5 % (32.4-45.2); HEMOGLOBIN 11.9 GM/dL (10.7-15.3); LYMPH % 13.7 % (8-40); MCH 27.9 pg (25.7-33.7); MCHC 33.5 g/dl (32.0-36.0); MEAN CELL VOLUME 83.4 fl (80-96); MEAN PLT VOLUME 9.5 fl (7.5-11.1); MONO % 4.7 % (3.8-10.2); NEUT % 80.5 % (42.8-82.8); PLATELET COUNT 157 K/MM3 (134-434); RBC 4.26 M/mm3 (3.60-5.2); RDW 21.1 % (11.6-15.6); WHITE BLOOD COUNT 9.5 K/mm3 (4.0-10.0)
[2019-01-01 13:49] LABS: INR 0.87 (0.83-1.09); PROTHROMBIN TIME (PATIENT) 10.2 SEC (9.7-13.0)
[2019-01-01 13:51] LABS: ACTIVATED PTT 27.6 SECONDS (25.2-36.5)
--- NOTE | 2019-01-01 13:54 | PN ---
Progress Note, Labor Vaginal Exam #1 Labor Exam Date: 01/01/19 Labor Exam Time: 13:40 Heart Rate (range): 130-140 Dilatation: 7-8 Effacement (%): 80 Amniotic Membrane Status: Ruptured (AROM clear) Presentation: Vertex/Position Station: -1 Remarks: FHS cat-1 UC 3-4 min mod-strong Selected Entries 01/01/19 13:00 Pulse Rate 67 Blood Pressure 126/80 Vaginal Exam #2 Labor Exam Date: 01/01/19 Labor Exam Time: 15:30 Heart Rate (range): 130-140 Dilatation: 8-9 Effacement (%): 90 Amniotic Membrane Status: Ruptured Presentation: Vertex/Position Station: 0 (0/+1) Remarks: UC 2-3 min mod to strong Fhr cat-1 pt crying, requesting for pain meds Rx Iv Stadol 2 mg + phenrgan 25 mg iv stat Selected Entries 01/01/19 01/01/19 14:00 15:00 Temperature 98.1 F Pulse Rate 61 57 L Blood Pressure 141/81 139/84 Vaginal Exam #3 Labor Exam Date: 01/01/19 Labor Exam Time: 16:50 Heart Rate (range): 130 Dilatation: 9 Effacement (%): 90 Amniotic Membrane Status: Ruptured Presentation: Vertex/Position Station: +1 Remarks: uc q 2-3 min fhr cat-1 pitocin augmentation started at 4.00 PM pt uncomfortable Selected Entries 01/01/19 16:09 Temperature 99.4 F Pulse Rate 76 Blood Pressure 146/95 17.00 epidural analgesia requested 17.30 epidural set in effect posadas catheter placed pt comfortable Selected Entries 01/01/19 01/01/19 01/01/19 17:35 17:40 18:02 Temperature 99.0 F Pulse Rate 73 69 Blood Pressure 123/74 114/61 Vaginal Exam #4 Labor Exam Date: 01/01/19 Labor Exam Time: 19:10 Heart Rate (range): 150 Dilatation: 10 Effacement (%): 100 Amniotic Membrane Status: Ruptured Presentation: Vertex/Position Station: +2 Remarks: UC q2-3 min FHR cat-1 pt comfortable after epidural no pressure sensation yet, await for passive descent Selected Entries 01/01/19 01/01/19 01/01/19 18:02 18:15 18:30 Temperature 99.0 F Pulse Rate 68 62 Blood Pressure 109/65 114/59 L 01/01/19 18:45 Temperature Pulse Rate 60 Blood Pressure 111/66 pt was encouraged to push intermittently at 19.45 hr. She was given 10-15 min rest in between for effective pushing T max 100.4 fhr 160 -170 bpm inthe end
[2019-01-01 14:22] LABS: ALBUMIN 2.5 g/dl (3.4-5.0); BILIRUBIN,TOTAL 0.8 mg/dL (0.2-1); CALCIUM 8.7 mg/dL (8.5-10.1); CREATININE 0.7 mg/dL (0.55-1.3); POTASSIUM 3.9 mmol/L (3.5-5.1); TOT PROT 6.2 g/dl (6.4-8.2)
[2019-01-01 14:49] LABS: ANISOCYTOSIS 1+; MACROCYTOSIS 1+
[2019-01-01] MEDS ORDERED: OXYTOCIN 20 UNITS in 0.9% NS 20 UNIT/1,000 ML INFUS.BAG IV ONE (15:29)
[2019-01-01] MEDS ORDERED: PROMETHAZINE HCL 25 MG/1 ML VIAL ONE (15:30)
[2019-01-01] MEDS ORDERED: BUTORPHANOL TARTRATE 1 MG/ML VIAL ONE ×2 (15:30)
[2019-01-01] MEDS ORDERED: OXYTOCIN 30 UNITS in 0.9% NS 30 UNIT/500 ML INFUS.BAG IVPB ONE (16:01)
[2019-01-01] MEDS: OXYTOCIN 30 UNITS in 0.9% NS 30 UNIT/500 ML INFUS.BAG IVPB SCH (16:07)
[2019-01-01] MEDS ORDERED: FENTANYL/BUPIVACAINE/NS/PF - PCEA - 50 ML DISP.SYRIN EP ONE (17:08)
[2019-01-01] MEDS ORDERED: LIDO 2%/EPI 1:200000 PRESRVFRE (20 ML SDVIAL) ONE (17:10)
[2019-01-01] MEDS ORDERED: BUPIVACAINE HCL/PF 0.25% (2.5MG/ML) 10 ML VIAL ONE (17:10)
[2019-01-01] MEDS ORDERED: NALOXONE HCL 0.4 MG/ML VIAL IVPUSH PRN (17:32)
[2019-01-01] MEDS ORDERED: FENTANYL/BUPIVACAINE/NS/PF - PCEA - 50 ML DISP.SYRIN EP SCH (17:45)
[2019-01-01] MEDS ORDERED: LIDOCAINE HCL 1% PRESERVATIVE FREE - 30ML VIAL ONE (20:59)
[2019-01-01] MEDS: OXYTOCIN 20 UNITS in 0.9% NS 20 UNIT/1,000 ML INFUS.BAG IV SCH (21:10)
[2019-01-01] MEDS ORDERED: BENZOCAINE 20% 57 GM BOTTLE TP PRN (21:27)
[2019-01-01] MEDS ORDERED: METHYLERGONOVINE MALEATE 0.2 MG/1 ML AMP IM PRN (21:27)
[2019-01-01] MEDS ORDERED: BENZOCAINE 28 GM HEMORRHOIDAL OINTMENT TP PRN (21:27)
[2019-01-01] MEDS ORDERED: WITCH HAZEL 50% (TUCKS) 40 PAD/JAR PAD TP PRN (21:27)
[2019-01-01] MEDS ORDERED: BISACODYL 10 MG SUPP.RECT RC PRN (21:27)
[2019-01-01] MEDS ORDERED: OXYTOCIN 20 UNITS in 0.9% NS 1,000 ML IV SCH (21:30)
[2019-01-01] MEDS ORDERED: ceFAZolin SODIUM 1 GM VIAL ONE (21:35)
[2019-01-01] MEDS ORDERED: ceFAZolin 2 GRAM PREMIX BAG IVPB SCH (21:45)
--- NOTE | 2019-01-01 21:49 | PN ---
Delivery - Delivery Vaginal Delivery: No Problems, Spontaneous (pt delievered in vx presentation, Annia position .cord around the neck x1 was untangled before the delivery of shoulder. Shoulders delivered without difficulty .cord blood collected, cord blood sent for cord gas. perineum 1st degree laceration sutured with chr catgut under local infiltration . Placenta& membranes delivered without difficulty .) Type of Anesthesia: Local, Epidural Episiotomy/Laceration: Perineal Extension/lac (after suturing OH exam was done mucosa & sphincter was intact), 1st degree EBL (cc): 350 Delivery, Single - Stages of Labor Date 1st Stage Initiatied: 01/01/19 Time 1st Stage Initiated: 02:00 Date 2nd Stage Initiated: 01/01/19 Time 2nd Stage Initiated: 19:10 Date of Delivery: 01/01/19 Time of Delivery: 21:05 Date Placenta Delivered: 01/01/19 Time Placenta Delivered: 21:10 Placenta: Yes: Spontaneous, Uterine Exploration - Condition of Infant Auxiliary Equipment Tender/Occupational Therapy Assistant Present: No Infant Gender: Male Weight: 9 lb 9 oz Position: Left, OA (cord around the neck x1) Total Hours ROM (Hrs/Mins): 7hrs .30 min - 1 Minute Total Score: 8 5 Minutes Total Score: 9 - [place] Feeding Plan Initial Plan: Elected not to breastfeed exclusively throughout hospitalization Remarks - Remarks Remarks: 28 yrs , 39.3 weeks by sono & 41.3 weeks by dates admitted in labor pnc in , [facility] h/o GDM , diet controlled Intra Iv stadol with phenrgan followed by epidural labor analgesia was given protracted active phase of labor was noted Intra T max 100.4 Post delivery Temp 99.5, pulse 80/min Bp 129/59 prophylactic Iv ancef 2 gm given pp bgm 96 .
[2019-01-01] MEDS ORDERED: CEFAZOLIN 2 GM/D5W 2 GM/50 ML ML IVPB STA (22:32)
[2019-01-02] MEDS: ACETAMINOPHEN 325 MG TABLET (FP) PO PRN ×5 (02:12→21:32)
[2019-01-02] MEDS: IBUPROFEN 600 MG TABLET (FP) PO PRN ×5 (02:17→21:31)
[2019-01-02 07:58] LABS: BASO % 0.2 % (0-2.0); EOS % 0.2 % (0-4.5); HEMATOCRIT 28.3 % (32.4-45.2); HEMOGLOBIN 9.6 GM/dL (10.7-15.3); LYMPH % 10.7 % (8-40); MCH 28.3 pg (25.7-33.7); MCHC 34.1 g/dl (32.0-36.0); MEAN CELL VOLUME 83.1 fl (80-96); MEAN PLT VOLUME 9.4 fl (7.5-11.1); MONO % 6.3 % (3.8-10.2); NEUT % 82.6 % (42.8-82.8); PLATELET COUNT 127 K/MM3 (134-434); RDW 21.9 % (11.6-15.6); WHITE BLOOD COUNT 12.4 K/mm3 (4.0-10.0)
[2019-01-02] MEDS: FERROUS SO4 325 MG TABLET (FP) PO SCH ×2 (08:43→17:27)
[2019-01-02] MEDS ORDERED: DIPHTH,PERTUSS(ACELL),TET 0.5 ML DISP.SYRIN IM ONE (10:00)
[2019-01-02] MEDS: PRENATAL VITAMINS W/ FOLIC ACID TABLET (FP) PO SCH (10:22)
[2019-01-02] MEDS: oxyCODONE HCL 5 MG TABLET PO PRN ×3 (10:36→21:31)
--- NOTE | 2019-01-02 10:40 | PN ---
Post Progress Note - Subjective Subjective: not ambulating due to pain, lochia decreased, tolerating PO, requesting pain control Type of Delivery: Vital Signs: Vital Signs Temperature 98.7 F 01/02/19 05:54 Pulse Rate 64 01/02/19 05:54 Respiratory Rate 18 01/02/19 05:54 Blood Pressure 116/71 01/02/19 05:54 O2 Sat by Pulse Oximetry (%) 100 01/01/19 22:00 Breast Exam: Yes: Other (deferred) Uterus: Yes: Fundus Firm Abdomen/GI: Yes: Abdomen soft, Other (pubic symphysis tenderness on palpation and on leg movement) Lochia, amount: Small Extremities: Yes: Calves non-tender Perineum: Yes: Intact Activity: Other - Labs Labs: CBC WBC 12.4 K/mm3 (4.0-10.0) H 01/02/19 07:15 RBC 3.40 M/mm3 (3.60-5.2) L 01/02/19 07:15 Hgb 9.6 GM/dL (10.7-15.3) L 01/02/19 07:15 Hct 28.3 % (32.4-45.2) L D 01/02/19 07:15 MCV 83.1 fl (80-96) 01/02/19 07:15 MCH 28.3 pg (25.7-33.7) 01/02/19 07:15 MCHC 34.1 g/dl (32.0-36.0) 01/02/19 07:15 RDW 21.9 % (11.6-15.6) H 01/02/19 07:15 Plt Count 127 K/MM3 (134-434) L 01/02/19 07:15 MPV 9.4 fl (7.5-11.1) 01/02/19 07:15 Absolute Neuts (auto) 10.3 K/mm3 (1.5-8.0) H 01/02/19 07:15 Neutrophils % 82.6 % (42.8-82.8) 01/02/19 07:15 Lymphocytes % 10.7 % (8-40) D 01/02/19 07:15 Monocytes % 6.3 % (3.8-10.2) 01/02/19 07:15 Eosinophils % 0.2 % (0-4.5) 01/02/19 07:15 Basophils % 0.2 % (0-2.0) 01/02/19 07:15 Nucleated RBC % 0 % (0-0) 01/02/19 07:15 Anisocytosis 1+ 01/01/19 13:15 Microcytosis 1+ 01/01/19 13:15 Macrocytosis 1+ 01/01/19 13:15 Other Findings, Remarks: pelvic x-ray noted Problem List - Problems (1) Gestational diabetes, diet controlled Code(s): O24.410 - GESTATIONAL DIABETES MELLITUS IN , DIET CONTROLLED Qualifiers: Trimester: third trimester Qualified Code(s): O24.410 - Gestational diabetes mellitus in , diet controlled Assessment/Plan PPD # 1 complaining of pelvic and leg pain. 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 -Pain control -PT -Pelvic girdle
--- NOTE | 2019-01-02 16:21 | PN ---
Progress Note (short form) - Note Progress Note: pt c/o pain in pubic area , difficulty in walking , pain meds o/e p/a ut below umblicus lochia ligt pubic are tenderness in the middle & towards left side . pt need assistance in getting up & walking Selected Entries 01/02/19 12:00 Temperature 98.2 F Pulse Rate 62 Blood Pressure 120/70 Laboratory Tests 01/02/19 07:15 WBC 12.4 H Hgb 9.6 L Hct 28.3 L D MCV 83.1 Plt Count 127 L Neutrophils % 82.6 Lymphocytes % 10.7 D pelvic Xray , widening of pubic symphysis . BGM 69 , before dinner Imp s/p , large baby 9'9" Plan ct pain meds . PT has not seen patient yet she will need walker to go home Problem List - Problems (1) with 39 completed weeks gestation Code(s): Z3A.39 - 39 WEEKS GESTATION OF (2) Labor established Code(s): OSC6606 - (3) Gestational diabetes, diet controlled Code(s): O24.410 - GESTATIONAL DIABETES MELLITUS IN , DIET CONTROLLED Qualifiers: Trimester: third trimester Qualified Code(s): O24.410 - Gestational diabetes mellitus in , diet controlled (4) with care elsewhere, antepartum Code(s): Z34.90 - ENCNTR FOR SUPRVSN OF NORMAL , UNSP, UNSP TRIMESTER
[2019-01-02] MEDS ORDERED: SENNOSIDES/DOCUSATE COMBO (SENNA PLUS) TABLET (UD) PO PRN (22:00)
[2019-01-03] MEDS: ELECTROLYTE-148 SOLN 1,000 ML IV SCH (00:20)
[2019-01-03] MEDS: OXYTOCIN 20 UNITS in 0.9% NS 20 UNIT/1,000 ML INFUS.BAG IV SCH (00:26)
[2019-01-03] MEDS: OXYTOCIN 30 UNITS in 0.9% NS 30 UNIT/500 ML INFUS.BAG IVPB SCH (00:26)
[2019-01-03 00:33] VITALS: PULSE 63
[2019-01-03] MEDS: IBUPROFEN 600 MG TABLET (FP) PO PRN ×3 (06:02→15:23)
[2019-01-03] MEDS: ACETAMINOPHEN 325 MG TABLET (FP) PO PRN ×3 (06:03→15:22)
[2019-01-03] MEDS: oxyCODONE HCL 5 MG TABLET PO PRN ×3 (06:03→16:56)
--- NOTE | 2019-01-03 06:35 | PN ---
Post Progress Note - Subjective Subjective: still using walker today for ambulation, will be seen by PT today and maybe discharge after, will need follow up Post Day: 2 Type of Delivery: Vital Signs: Vital Signs Temperature 98.1 F 01/02/19 22:00 Pulse Rate 63 01/02/19 22:00 Respiratory Rate 18 01/02/19 22:00 Blood Pressure 127/86 01/02/19 22:00 O2 Sat by Pulse Oximetry (%) 100 01/01/19 22:00 Breast Exam: Yes: Soft Uterus: Yes: Fundus Firm Abdomen/GI: Yes: Abdomen soft Lochia, amount: Small Extremities: Yes: Calves non-tender Perineum: Yes: Intact Activity: Other (using walker) - Labs Labs: CBC WBC 12.4 K/mm3 (4.0-10.0) H 01/02/19 07:15 RBC 3.40 M/mm3 (3.60-5.2) L 01/02/19 07:15 Hgb 9.6 GM/dL (10.7-15.3) L 01/02/19 07:15 Hct 28.3 % (32.4-45.2) L D 01/02/19 07:15 MCV 83.1 fl (80-96) 01/02/19 07:15 MCH 28.3 pg (25.7-33.7) 01/02/19 07:15 MCHC 34.1 g/dl (32.0-36.0) 01/02/19 07:15 RDW 21.9 % (11.6-15.6) H 01/02/19 07:15 Plt Count 127 K/MM3 (134-434) L 01/02/19 07:15 MPV 9.4 fl (7.5-11.1) 01/02/19 07:15 Absolute Neuts (auto) 10.3 K/mm3 (1.5-8.0) H 01/02/19 07:15 Neutrophils % 82.6 % (42.8-82.8) 01/02/19 07:15 Lymphocytes % 10.7 % (8-40) D 01/02/19 07:15 Monocytes % 6.3 % (3.8-10.2) 01/02/19 07:15 Eosinophils % 0.2 % (0-4.5) 01/02/19 07:15 Basophils % 0.2 % (0-2.0) 01/02/19 07:15 Nucleated RBC % 0 % (0-0) 01/02/19 07:15 Anisocytosis 1+ 01/01/19 13:15 Microcytosis 1+ 01/01/19 13:15 Macrocytosis 1+ 01/01/19 13:15 Assessment/Plan oob PT to follow up today may be dc after evalution
[2019-01-03] MEDS: FERROUS SO4 325 MG TABLET (FP) PO SCH ×2 (08:31→16:59)
[2019-01-03] MEDS: PRENATAL VITAMINS W/ FOLIC ACID TABLET (FP) PO SCH (10:08)
[2019-01-03 11:44] VITALS: BP 129/81; TEMP 97.8
--- NOTE | 2019-01-03 13:10 | PN ---
Progress Note (short form) - Note Progress Note: Pt seen and examined. She is a 28 year old female who gave via uneventful vaginal delivery 2 days ago. She is c/o severe pain with weight bearing in the pubic symphysis area. She has no pain when sitting or lying in bed. She can ambulate backwards without pain. She was seen by P.T., and is using a walker. PE B/L LE NVI, no parasthesias, full ROM, full strength with min pain + tender over pubic symphysis Xrays Show a wide pubis symphysis diastasis No other abnormalities, no fractures Imp Post pubic symphysis diastasis, not concerning. Rec Con't using walker for ambulation assistance. Out pt P.T. likely not necessary She can f/u with me in 1 week if she is not improving. Likely that will not be necessary.
--- NOTE | 2019-01-03 16:15 | DS ---
Physical Exam-FUR FINISHER TAILOR Vital Signs: Vital Signs Temperature 97.8 F 01/03/19 09:00 Pulse Rate 63 01/03/19 09:00 Respiratory Rate 20 01/03/19 09:00 Blood Pressure 129/81 01/03/19 09:00 O2 Sat by Pulse Oximetry (%) 100 01/01/19 22:00 Constitutional: Yes: Well Nourished, Moderate Distress (when ambulates) Eyes: Yes: WNL HENT: Yes: WNL Neck: Yes: WNL Cardiovascular: Yes: WNL Respiratory: Yes: WNL Gastrointestinal: Yes: WNL, Normal Bowel Sounds, Other (bm not done since delivery , declined supppository or enema) ...Rectal Exam: Yes: WNL ....Post : Yes: Uterus firm, Uterus non-tender, Moderate lochia rubra ( 1st degree laceration repair healing well) Breast(s): Yes: WNL, Other (breast feedinig, not engorged) Extremities: Yes: Other (pain while ambulating , needs walker to ambulate . Pubic symphysis tenderness) Edema: LLE: 1+, RLE: 1+ Neurological: Yes: WNL ...Motor Strength: WNL Psychiatric: Yes: WNL, Alert, Oriented Labs: CBC, BMP 01/02/19 07:15 01/01/19 13:15 Delivery - Delivery Vaginal Delivery: No Problems, Spontaneous (pt delievered in vx presentation, Rescue position .cord around the neck x1 was untangled before the delivery of shoulder. Shoulders delivered without difficulty .cord blood collected, cord blood sent for cord gas. perineum 1st degree laceration sutured with chr catgut under local infiltration . Placenta& membranes delivered without difficulty .) Type of Anesthesia: Local, Epidural Episiotomy/Laceration: Perineal Extension/lac, 1st degree EBL (cc): 350 Delivery, Single - Stages of Labor Date 1st Stage Initiatied: 01/01/19 Time 1st Stage Initiated: 02:00 Date 2nd Stage Initiated: 01/01/19 Time 2nd Stage Initiated: 19:10 Date of Delivery: 01/01/19 Time of Delivery: 21:05 Time Placenta Delivered: 21:10 Placenta: Yes: Spontaneous, Uterine Exploration - Condition of Corporate Librarian/Stenographer Secretary Present: No Gender: Male Weight: 9 lb 9 oz Position: Left, OA Total Hours ROM (Hrs/Mins): 7hrs .30 min - 1 Minute Total Score: 8 5 Minutes Total Score: 9 - Feeding Plan Initial Plan: Elected not to breastfeed exclusively throughout hospitalization Remarks - Remarks Remarks: 28 yrs , 39.3 weeks by sono & 41.3 weeks by dates admitted in labor pnc in , with [facility] ( [place]) h/o GDM , diet controlled Intra Iv stadol with phenrgan followed by epidural labor analgesia was given protracted active phase of labor was noted Intra T max 100.4 Post delivery Temp 99.5, pulse 80/min Bp 129/59 prophylactic Iv ancef 2 gm given pp bgm 96 . pp pt could not walk, ambulation painful pelvic Xray , widening of pubic symphysis . ortho consult is done recommend ambulation with walker , analgesics PT done , walker training given VNS order is given & walker is ordered by social work associate Discharge Summary Reason For Visit: LABOR ADMISSION Current Active Problems Anemia (Acute) Diastasis of symphysis pubis during delivery (Acute) Gestational diabetes, diet controlled (Acute) Labor established (Acute) Normal spontaneous vaginal delivery (Acute) with 39 completed weeks gestation (Acute) with care elsewhere, antepartum (Acute) Condition: Stable - Instructions Diet, Activity, Other Instructions: Post Instructions DIET: Continue good diet high in protein, calcium, and iron rich foods. Drink at least eight (8) glasses of water daily in addition to other fluids. ___ LoCarb/Low Calorie Diet ___ Diabetic Diet MEDICATIONS: Continue vitamins and iron as previously directed. Motrin and Tylenol may be taken for minor discomfort. ACTIVITY: Mild to moderate exercise may be started in two (2) weeks. Take frequent rest periods. Resume normal activity after six (6) week check up. WOUND CARE OF OPERATIVE SITE: Continue use of perineal bottle until vaginal discharge stops. Keep area clean. Shower daily. Keep abdominal wound dry. Report any drainage or redness to physician. Tub baths, tampons and douches are not permitted for [address] Breast feeding & or Bottle feeding BREAST CARE: (For those that are not ): If engorgement occurs: Wear tight fitting bra. Take Tylenol or Motrin for pain. Apply cold packs (ice in bags to each breast ) FAMILY PLANNING: There are many control alternatives to pursue and they should be discussed at your first office visit. You may resume sexual activity after your six (6) week check up. (Remember, breast feeding is not a contraceptive). Use Walker at home NEXT PHYSICIAN APPOINTMENT: Be certain to call for a 2 (two ) week appointment, unless otherwise directed. Call [phone] for appt at [address] [place] [address] Women's health FOLLOW UP WITH DR JAVED IF STILL EXPERIENCING PELVIC PAIN. Call Clinic or got to Emergency Dept if you have any of the following: Heavy vaginal bleeding Painful urination Leg pain Unusual odor noted to vaginal bleeding High fever Red streaking noted on breast Referrals: Gabriela Nova MD [Staff Physician] - Alfredo Javed MD [Staff Physician] - Disposition: VNS/HOME HEALTH CARE - Home Medications Comprehensive Discharge Medication List: Ambulatory Orders Acetaminophen [Tylenol .Regular Strength -] 650 mg PO Q6H PRN #30 tablet Benzocaine [Americaine 20% [place] -] 1 spray TP PRN PRN bottle 01/02/19 Ferrous Sulfate [Feosol] 325 mg PO BIDWM #60 tab 01/02/19 Ibuprofen [Motrin -] 600 mg PO QID PRN #30 tablet 01/02/19 Vitamins (Sjr) - 1 tab PO DAILY #30 tablet 01/02/19 Sennosides/Docusate Sodium [Pericolace -] 2 tablet PO HS PRN #30 tablet
== END 2019-01-03 17:40 | disposition home health service (06) | DRG 560 ==
LOC: JDEL 10:17 → JLDR 11:45 → J3W 23:25
PROVIDERS: ADMIT Obstetrics & Gynecology; ATTEND Obstetrics & Gynecology
PROC: 10E0XZZ Delivery of Products of Conception, External Approach (ICD-10-PCS; principal; 2019-01-01)
PROC: 0HQ9XZZ Repair Perineum Skin, External Approach (ICD-10-PCS; 2019-01-01)
DX: O24.420 Gestational diabetes mellitus in childbirth, diet controlled (principal); O70.0 First degree perineal laceration during delivery; Z3A.39 39 weeks gestation of pregnancy; Z37.0 Single live birth
CPT/HCPCS: 36415; 36600; 59409; 72170-TC-FY; 80053; 82803; 82962; 85025; 85610; 85730; 86593; 86850; 86900; 86901; 90715; 97116-GP; 97162-GP

== ENCOUNTER 2020-06-10 17:08 | Emergency (ER) | payer OTHER ==
[2020-06-10 17:53] VITALS: BP 127/64; PULSE 84; TEMP 97.9; BMI 31.1
== END 2020-06-10 20:02 | disposition home or self-care (01) ==
LOC: JER 17:08
DX: M54.12 Radiculopathy, cervical region (principal)
CPT/HCPCS: 72050-TC-FY; 99283-25

== ENCOUNTER 2023-09-07 13:30 | Emergency (ER) | payer OTHER ==
[2023-09-07] MEDS ORDERED: ONDANSETRON 4 MG/2 ML VIAL IVPUSH ONE (13:57)
[2023-09-07] MEDS ORDERED: DICYCLOMINE HCL 10 MG CAPSULE ONE ×2 (14:18→14:45)
[2023-09-07] MEDS ORDERED: METOCLOPRAMIDE HCL INJECTION 10 MG/2 ML VIAL ONE (14:18)
[2023-09-07] MEDS ORDERED: MAG HYDROX/AL HYDROX/SIMETH 30 ML UNIT-DOSE CUP ONE (14:19)
[2023-09-07] MEDS ORDERED: ACETAMINOPHEN INJECTION 100 ML IVPB ONE (14:19)
[2023-09-07] MEDS ORDERED: FAMOTIDINE 20 MG/50 ML IVPB 20 MG/50 ML MG IVPB ONE (14:19)
[2023-09-07] MEDS ORDERED: PANTOPRAZOLE SODIUM 40 MG/100 ML BAG IVPB ONE (14:19)
[2023-09-07] MEDS: MAG HYDROX/AL HYDROX/SIMETH 30 ML UNIT-DOSE CUP PO ONE (14:20)
[2023-09-07 14:23] VITALS: RESP 16; BMI 31.5
[2023-09-07] MEDS: SODIUM CHLORIDE 0.9% 500 ML INFUS.BAG IV ONE (14:25)
[2023-09-07] MEDS: DICYCLOMINE HCL 10 MG CAPSULE PO ONE (14:25)
[2023-09-07] MEDS: ACETAMINOPHEN 1000 MG/100 ML BAG IVPB ONE (14:40)
[2023-09-07] MEDS: FAMOTIDINE 20 MG/50 ML IVPB 20 MG/50 ML MG IVPB ONE (14:45)
[2023-09-07] MEDS: METOCLOPRAMIDE HCL INJECTION 10 MG/2 ML VIAL IVPUSH ONE (14:45)
[2023-09-07] MEDS: PANTOPRAZOLE SODIUM 40 MG VIAL IVPUSH ONE (14:50)
[2023-09-07 14:55] LABS: HEMATOCRIT 40.2 % (32.4-45.2); HEMOGLOBIN 13.6 GM/dL (10.7-15.3); MCH 28.6 pg (25.7-33.7); MCHC 33.8 g/dl (32.0-36.0); MEAN CELL VOLUME 84.6 fl (80-96); MEAN PLT VOLUME 8.8 fl (7.5-11.1); PLATELET COUNT 237 10^3/uL (134-434); RBC 4.75 M/mm3 (3.60-5.2); RDW 14.6 % (11.6-15.6); WHITE BLOOD COUNT 13.2 K/mm3 (4.0-10.0)
[2023-09-07 15:19] LABS: ANISOCYTOSIS 0; MACROCYTOSIS 0
[2023-09-07 15:24] LABS: URINE APPEARANCE CLEAR; URINE BILIRUBIN NEGATIVE (NEGATIVE); URINE COLOR YELLOW; URINE GLUCOSE (UA) NEGATIVE (NEGATIVE); URINE KETONE TRACE (NEGATIVE); URINE LEUK ESTERASE NEGATIVE (NEGATIVE); URINE NITRITE NEGATIVE (NEGATIVE); URINE PROTEIN NEGATIVE (NEGATIVE); URINE UROBILINOGEN 0.2 mg/dL (0.2-1.0)
[2023-09-07 15:28] LABS: POTASSIUM 4.4 mmol/L (3.5-5.1)
[2023-09-07 15:31] LABS: INR 1.03 (0.83-1.09)
[2023-09-07 15:32] LABS: CALCIUM 9.7 mg/dL (8.5-10.1)
[2023-09-07 15:34] LABS: ACTIVATED PTT 26.6 SECONDS (25.2-36.5); BLOOD UREA NITROGEN 14.5 mg/dL (7-18)
[2023-09-07 15:36] LABS: CREATININE 0.8 mg/dL (0.55-1.3); PHOSPHOROUS 2.9 mg/dL (2.5-4.9); TOT PROT 8.2 g/dl (6.4-8.2)
[2023-09-07 15:37] LABS: BILIRUBIN,TOTAL 0.8 mg/dL (0.2-1)
[2023-09-07 16:59] VITALS: BP 97/71; PULSE 83; TEMP 99.3
[2023-09-07] MEDS ORDERED: LOPERAMIDE HCL 2 MG CAPSULE ONE (17:07)
[2023-09-07] MEDS: LOPERAMIDE HCL 2 MG CAPSULE PO ONE (17:15)
== END 2023-09-07 17:17 | disposition home or self-care (01) ==
LOC: JER 13:30
PROC: 3E033GC Introduction of Other Therapeutic Substance into Peripheral Vein, Percutaneous Approach (ICD-10-PCS; principal; 2023-09-07)
PROC: 3E033GC Introduction of Other Therapeutic Substance into Peripheral Vein, Percutaneous Approach (ICD-10-PCS; 2023-09-07)
PROC: 3E033GC Introduction of Other Therapeutic Substance into Peripheral Vein, Percutaneous Approach (ICD-10-PCS; 2023-09-07)
PROC: 3E033NZ Introduction of Analgesics, Hypnotics, Sedatives into Peripheral Vein, Percutaneous Approach (ICD-10-PCS; 2023-09-07)
DX: R10.33 Periumbilical pain (principal); R11.10 Vomiting, unspecified; R19.7 Diarrhea, unspecified; A08.4 Viral intestinal infection, unspecified; R55 Syncope and collapse; I95.1 Orthostatic hypotension; Z20.822 Contact with and (suspected) exposure to COVID-19
CPT/HCPCS: 0241U-QW; 36415; 70450-TC; 76830-TC; 80053; 81003; 82962; 83735; 84100; 84484; 84703; 85025; 85610; 85730; 86850; 86900; 86901; 87086; 93005; 93010; 99285-25; J0131

== ENCOUNTER 2024-03-29 08:23 | Emergency (ER) | payer OTHER ==
[2024-03-29 08:50] VITALS: BP 108/71; PULSE 59; RESP 18; TEMP 98.1; BMI 29.7
[2024-03-29 13:40] LABS: HIV INTERPRETATION NEGATIVE (NEGATIVE)
== END 2024-03-29 10:13 | disposition home or self-care (01) ==
LOC: JERFT 08:23
DX: R21 Rash and other nonspecific skin eruption (principal)
CPT/HCPCS: 36415; 86803; 87389; 99283-25